=== PATIENT | male | born 1990 | race Two or more races ===

== ENCOUNTER 2020-01-07 06:14 | Day surgery (SDC) | payer BC ==
[~2020-01-07] VITALS: Ht 170.2 cm; Wt 93.0 kg
[2020-01-07] VITALS (9 sets, daily range): BP systolic 16–134; BP diastolic 62–76
[2020-01-07] MEDS ORDERED: Lidocaine 1% MPF 10mg/ml 5ml ONE (07:00)
[2020-01-07] MEDS ORDERED: LR 1000ml 1,000 ML IVLG SCH ×2 (07:00→07:09)
[2020-01-07] MEDS ORDERED: LR 1000ml ONE (07:00)
[2020-01-07] MEDS ORDERED: Propofol 200mg/20ml IV ONE (07:00)
--- NOTE | 2020-01-07 07:14 | Anethesia Preoperative Eval ---
Anesthesia Pre-op PMH/ROS General Date of Evaluation: Jan 07, 2020 Time of Evaluation: 07:00 Anesthesiologist: lincoln ASA Score: ASA 2 Mallampati Score Class I : Soft palate, uvula, fauces, pillars visible Class II: Soft palate, uvula, fauces visible Class III: Soft palate, base of uvula visible Class IV: Only hard plate visible Mallampati Classification: Class II Surgeon: haleigh Diagnosis: hx/o colon polyps Surgical Procedure: colonoscopy Anesthesia History: none Social History: smoking - nonsmoker Family History: no anesthesia problems Allergies: Coded Allergies: No Known Allergies (Unverified , 01/06/20) Medications: see eMAR Patient NPO?: Yes Past Medical History Gastrointestinal/Genitourinary: Reports: other - colon polyps Anesthesia Pre-op Phys. Exam Physician Exam Last Vital Signs Date Time Temp Pulse Resp B/P (MAP) Pulse Ox O2 Delivery O2 Flow Rate FiO2 01/07/20 07:00 97.4 58 18 118/70 99 Room Air Constitutional: NAD Neurologic: CN 2-12 intact Cardiovascular: RRR Respiratory: CTA Gastrointestinal: S/NT/ND Airway Exam Mallampati Score: Class II MO: full Neck: flexible TMD: 2fb ROM: full Teeth: intact Anesthesia Pre-op A/P Risk Assessment & Plan Assessment: asa2 Plan: mac Status Change Before Surgery: No Pre-Antibiotics Drug: Sushma Quintanilla MD Jan 07, 2020 07:14
[2020-01-07] MEDS ORDERED: Atropine Inj 1mg/10ml Syr IV PRN (07:15)
[2020-01-07] MEDS ORDERED: fentaNYL 100 mcg/2 mL IV PRN (07:15)
[2020-01-07] MEDS ORDERED: DiphenhydrAMINE 50mg/ml Inj IVP PRN (07:15)
[2020-01-07] MEDS ORDERED: Midazolam 2mg/2ml Inj IVP PRN (07:15)
--- NOTE | 2020-01-07 07:19 | Short Stay Surgery H&P ---
History of Present Illness History of Present Illness Chief Complaint h/o colon polyp - see H&P HPI Evan Mack is a 29 year old male who was admitted on for History Of Polyps Patient History Allergies: Coded Allergies: No Known Allergies (Unverified , 01/06/20) Medication History No Active Prescriptions or Reported Meds Physical Exam Vital Signs Last Vital Signs Date Time Temp Pulse Resp B/P (MAP) Pulse Ox O2 Delivery O2 Flow Rate FiO2 01/07/20 07:00 97.4 58 18 118/70 99 Room Air Plan Attestation Are the patient's medical conditions optimized for surgery? Maddie Rivers MD Jan 07, 2020 07:19
--- NOTE | 2020-01-07 07:20 | Pre-Procedure Note/Attestation ---
Pre-Procedure Note/Attestation Complete Prior to Procedure Planned Procedure: not applicable Procedure Narrative: colon Indications for Procedure Pre-Operative Diagnosis: h/o polyp Attestation I attest that I discussed the nature of the procedure; its benefits; risks and complications; and alternatives (and the risks and benefits of such alternatives ), prior to the procedure, with the patient (or the patient's legal retail customer service representative). I attest that, if there was a reasonable possibility of needing a blood transfusion, the patient (or the patient's legal retail customer service representative) was given the [facility] standardized written summary, pursuant to the Dustin Philip Blood Safety Act ([place] Health and Safety Code # 1645, as amended). I attest that I re-evaluated the patient just prior to the surgery and that there has been no change in the patient's H&P, except as documented below: Maddie Rivers MD Jan 07, 2020 07:20
--- NOTE | 2020-01-07 08:04 | Endoscopy Procedure Note ---
Endoscopy Procedure Note General Indication for Procedure: h/o polyp Operative Findings/Diagnosis: colon bx dim polyp sig at 20 Specimen: yes Anesthesia Anesthesiologist: Dr Mark Prescott Anesthesia: MAC Inserted Devices Implant(s) used?: No GI Core Measures 50 yrs or older w/o bx or poly: No 10yrs. F/U recommended: No If not recommended, why?: Above average risk 18 years or older w/prev. colo: Yes <3yrs. since last colonoscopy: No Med reason:<3 yrs.: System Reason:<3 yrs.: Last colonoscopy >= to 3yrs: Yes Maddie Rivers MD Jan 07, 2020 08:04
--- NOTE | 2020-01-07 08:04 | Brief Operative Note ---
Immediate Post Operative Note Operative Note Chief Complaint: h/o polyp Pre-op Diagnosis: h/o polyp Procedure: colon bx Post-op Diagnosis: dim sig polyp at 20 Surgeon: haleigh Specimen: yes Complications: none Fluids: recorded Implant(s) used?: No Maddie Rivers MD Jan 07, 2020 08:04
--- NOTE | 2020-01-07 08:21 | Immediate Post-Op Evaluation ---
Immediate Post-Op Evalulation Immediate Post-Op Evalulation Procedure: colonoscopy w/bx Date of Evaluation: Jan 07, 2020 Time of Evaluation: 08:17 IV Fluids: 400ml lr Blood Products: none Estimated Blood Loss: negligible Blood Pressure Systolic: 112 Blood Pressure Diastolic: 71 Pulse Rate: 65 Respiratory Rate: 18 O2 Sat by Pulse Oximetry: 99 Temperature (Fahrenheit): 97.0 Pain Score (1-10): 0 Nausea: No Vomiting: No Complications none Patient Status: awake, reacts, patent Hydration Status: adequate Drug: Sushma Quintanilla MD Jan 07, 2020 08:21
--- NOTE | 2020-01-07 08:22 | 48 Hour Post Anesthesia Eval ---
Post Anesthesia Evaluation Procedure: colonoscopy w/bx Date of Evaluation: Jan 07, 2020 Time of Evaluation: 08:19 Blood Pressure Systolic: 113 0: 68 Pulse Rate: 63 Respiratory Rate: 18 Temperature (Fahrenheit): 97.0 O2 Sat by Pulse Oximetry: 100 Airway: patent Nausea: No Vomiting: No Pain Intensity: 0 Hydration Status: adequate Cardiopulmonary Status: stable Mental Status/LOC: patient returned to baseline Post-Anesthesia Complications: none Follow-up care needed: N/A Sushma Carrero MD Jan 07, 2020 08:22
--- NOTE | 2020-01-07 16:00 | Operative Note - Dictated ---
DATE OF OPERATION: 01/07/2020 GASTROENTEROLOGY PROCEDURE REPORT PROCEDURE: Colonoscopy with biopsy. SURGEON: Maddie Rivers M.D. ANESTHESIA: Please see the separate anesthesiologist notes for details. PRE-ENDOSCOPIC DIAGNOSIS: History of colonic polyps as well as a family history of colonic polyps. POSTOPERATIVE DIAGNOSES: 1. Normal terminal ileum to about 10 cm. 2. Diminutive colon polyp at 20 cm, status post biopsy and removal. PROCEDURE IN DETAIL: The procedure, its risks, indications, alternatives, and possible complications were explained to the patient and informed consent was obtained. The rectal exam was done. The diagnostic colonoscope was introduced in the rectum and advanced to the terminal ileum without difficulty. The colonoscope was then gradually withdrawn and mucosa examined carefully. Examination of the colon mucosa as well as terminal ileum mucosa revealed a normal 10 cm of terminal ileum. In the distal sigmoid colon at 20 cm, there was a diminutive polyp measuring about 2 to 3 mm, which was removed with biopsy forceps. Retroflexed view of the rectum was unremarkable. The colonoscope was removed and the patient was sent to Recovery in good condition. COMPLICATIONS: None. RECOMMENDATIONS: 1. Follow up biopsy results. 2. Outpatient followup. 3. Repeat colonoscopy in five years. Maddie Rivers M.D. DR: CHAD JOB#: [id number] CC:
== END 2020-01-07 09:10 | disposition home or self-care (01) ==
LOC: GAS 06:14
DX: K63.5 Polyp of colon (principal)
CPT/HCPCS: 45380; J2704; J7120; 94003; 94150